=== PATIENT | male | born 1995 | race Caucasian/White ===

== ENCOUNTER 2019-06-08 12:25 | Emergency (ER) | payer OTHER ==
[2019-06-08 12:31] VITALS: TEMP 97.9
[2019-06-08] MEDS ORDERED: SODIUM CHLORIDE 0.9% 1,000 ML IV ONE (12:54)
[2019-06-08] MEDS ORDERED: SODIUM CHLORIDE 0.9% 500 ML 500 ML IV ONE (12:54)
[2019-06-08] MEDS ORDERED: MORPHINE SULFATE 4 MG/ML SYRINGE IVP STA (12:54)
[2019-06-08] MEDS ORDERED: PANTOPRAZOLE 40 MG/10 ML VIAL IVP STA (12:55)
[2019-06-08] MEDS ORDERED: ONDANSETRON 4 MG/2 ML VIAL IVP STA (12:55)
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
[2019-06-08] MEDS ORDERED: SODIUM CHLORIDE 0.9% 1,000 ML IV SCH (13:00)
[2019-06-08 13:06] LABS: Basophils # (A) 0.1 k/uL (0-0.2); Basophils % (A) 1 %; Eosinophils # (A) 0.6 k/uL (0-0.7); Eosinophils % (A) 6 %; HCT 54.6 % (39.0-53.0); Lymphocytes # (A) 1.6 k/uL (1.0-4.8); Lymphocytes % (A) 18 %; MCHC 34.7 g/dL (31.0-37.0); MCV 92.2 fL (80.0-100.0); Mean Platelet Volume 7.8; Monocytes # (A) 0.4 k/uL (0-1.0); Monocytes % (A) 5 %; Neutrophils # (A) 6.1 k/uL (1.3-7.7); Neutrophils % (A) 69 %; Platelet Count 327 k/uL (150-450); RBC 5.93 m/uL (4.30-5.90); RDW 12.7 % (11.5-15.5); WBC 8.9 k/uL (3.8-10.6)
[2019-06-08 13:30] LABS: ALT 216 U/L (4-49); African American GFR (CKD) >90 (>60 ml/min/1.73 sqM); Albumin 4.8 g/dL (3.5-5.0); Amylase 51 U/L (30-110); Anion Gap 11 mmol/L; Blood Urea Nitrogen 9 mg/dL (9-20); Calcium 9.6 mg/dL (8.4-10.2); Carbon Dioxide 29 mmol/L (22-30); Chloride 93 mmol/L (98-107); Glucose 121 mg/dL (74-99); Non-African American GFR(CKD) >90 (>60 ml/min/1.73 sqM); Sodium 133 mmol/L (137-145); Total Bilirubin 1.5 mg/dL (0.2-1.3); Total Protein 8.4 g/dL (6.3-8.2)
[2019-06-08 13:37] LABS: AST 102 U/L (17-59); Alkaline Phosphatase 75 U/L (38-126)
[2019-06-08 13:47] LABS: Appearance,Urine Clear (Clear); Bacteria,Urine Rare /hpf; Bilirubin,Urine Negative (Negative); Blood,Urine Negative (Negative); Color,Urine Yellow; Glucose,Urine (UA) Negative (Negative); Ketones,Urine Negative (Negative); Leukocyte Esterase,Urine Trace (Negative); Mucus,Urine Occasional /hpf; Nitrite,Urine Negative (Negative); PH, Urine 6.5 (5.0-8.0); Protein,Urine Trace (Negative); RBC,Urine 1 /hpf (0-5); Specific Gravity,Urine 1.018 (1.001-1.035); Squamous Epithelial Cell,Urine <1 /hpf (0-4); Urobilinogen,Urine <2.0 mg/dL (<2.0); WBC,Urine 6 /hpf (0-5)
--- NOTE | 2019-06-08 14:41 | CT ---
EXAMINATION TYPE: CT abdomen pelvis w con DATE OF EXAM: 06/08/2019 COMPARISON: None INDICATION: epigastric pain DLP: 1815.9 mGycm, Automated exposure control for dose reduction was used. CONTRAST: 100 mL of Isovue 300. Study performed without Oral Contrast TECHNIQUE: Axial images were obtained from above the diaphragm to the pubic rami in the axial plane a t 5 mm thick sections. Reconstructed images are reviewed on the computer in the coronal plane. FINDINGS: Limited CT sections are obtained the lung bases. The lung bases are clear. CT ABDOMEN: Liver: There is moderate fatty infiltration throughout the liver. Spleen: Normal Pancreas: Normal Adrenal glands: The adrenal glands are normal. Gallbladder: Normal Kidneys: No masses are evident. No hydronephrosis is present. No cysts are present. Delayed images were obtained through the kidneys, which remain unremarkable. Aorta: Normal Inferior vena cava: Normal. CT PELVIS: Scattered diverticuli are within the sigmoid colon and descending colon. No suspicious acute divertic ulitis is evident. The studies performed without oral contrast limiting bowel evaluation. Proximal small bowel loops are fluid-filled and somewhat prominent in the left upper quadrant of the abdomen. More distal small bowel loops have normal caliber but may have some subtle wall thickening. Correlate for focal ileus and ileitis. Appendix: Normal as visualized. Urinary bladder: Decompressed and cannot be well evaluated. Genitourinary structures: Prostate is unremarkable. Osseous structures: No suspicious lytic or sclerotic lesions. IMPRESSIONS: 1. Mild fluid-filled prominence of these proximal jejunum. Correlate for mild ileus. 2. Some mild wall thickening of the distal ileum may be present. Correlate for ileitis. 3. Mild diverticulosis without acute diverticulitis. 4. Moderate fatty infiltration liver
[2019-06-08 15:22] VITALS: BP 156/101; PULSE 68; RESP 18
== END 2019-06-08 15:49 | disposition home or self-care (01) ==
LOC: EC 12:25
DX: K56.7 Ileus, unspecified (principal); R74.8 Abnormal levels of other serum enzymes
CPT/HCPCS: 36415; 80053; 82150; 83690; 85025; 81001; 74177; 99284; 96374; 96375 ×2; 96361; J2270; J2405; C9113; Q9967

== ENCOUNTER 2020-01-14 23:10 | Emergency (ER) | payer OTHER ==
[2020-01-14 23:19] VITALS: RESP 18
[2020-01-14] MEDS ORDERED: SODIUM CHLORIDE 0.9% 1,000 ML IV ONE (23:42)
[2020-01-14] MEDS ORDERED: SODIUM CHLORIDE 0.9% 1,000 ML with MVI, ADULT NO.4 WITH VIT K 10 ML, THIAMINE 100 MG, F... IV ONE ×4 (23:42)
[2020-01-15 00:24] LABS: Basophils % (A) 0 %; Eosinophils # (A) 0.2 k/uL (0-0.7); Eosinophils % (A) 2 %; HCT 47.5 % (39.0-53.0); HGB 16.1 gm/dL (13.0-17.5); Lymphocytes % (A) 20 %; MCH 30.9 pg (25.0-35.0); MCHC 33.8 g/dL (31.0-37.0); MCV 91.6 fL (80.0-100.0); Mean Platelet Volume 7.4; Monocytes # (A) 0.4 k/uL (0-1.0); Monocytes % (A) 4 %; Neutrophils # (A) 7.5 k/uL (1.3-7.7); Neutrophils % (A) 74 %; Platelet Count 236 k/uL (150-450); RBC 5.19 m/uL (4.30-5.90); WBC 10.2 k/uL (3.8-10.6)
[2020-01-15 00:31] LABS: African American GFR (CKD) >90 (>60 ml/min/1.73 sqM); Anion Gap 10 mmol/L; Blood Urea Nitrogen 5 mg/dL (9-20); Calcium 9.5 mg/dL (8.4-10.2); Carbon Dioxide 27 mmol/L (22-30); Chloride 107 mmol/L (98-107); Glucose 108 mg/dL (74-99); Magnesium 2.2 mg/dL (1.6-2.3); Non-African American GFR(CKD) >90 (>60 ml/min/1.73 sqM); Potassium 3.4 mmol/L (3.5-5.1); Sodium 144 mmol/L (137-145)
--- NOTE | 2020-01-15 00:32 | ED ---
Psych HPI - General Chief Complaint: Psychiatric Symptoms Stated Complaint: ETOH Time Seen by Provider: 01/14/20 23:28 Source: patient, RN notes reviewed, old records reviewed Mode of arrival: wheelchair - History of Present Illness Initial Comments: 24 year old male presents emergency department today with his girlfriend with complaints of alcohol intoxication and suicidal ideation. Patient is a history of multidrug abuse. Patient reportedly took fentanyl and Xanax as well as drink this evening. He was making suicidal statements to his girlfriend and they decided to bring him to the ER for evaluation. Patient reports that he would like to go to rehab. He took the fentanyl and Xanax right before leaving the house to come to the ER reportedly. - Related Data Previous Rx's Medication Instructions Recorded Omeprazole [PriLOSEC] 20 mg PO AC-BID 7 Days #14 cap 06/08/19 Ondansetron Odt [Zofran Odt] 4 mg PO Q8HR PRN 7 Days #21 tab 06/08/19 Allergies Allergy/AdvReac Type Severity Reaction Status Date / Time No Known Allergies Allergy Verified 01/14/20 23:20 Review of Systems ROS Statement: Those systems with pertinent positive or pertinent negative responses have been documented in the HPI. ROS Other: All systems not noted in ROS Statement are negative. Past Medical History Past Medical History: No Reported History History of Any Multi-Drug Resistant Organisms: None Reported Past Surgical History: No Surgical Hx Reported Past Psychological History: No Psychological Hx Reported Smoking Status: Current every day smoker Past Alcohol Use History: Daily Past Drug Use History: Marijuana, Opiates General Exam - General Exam Comments Initial Comments: 24 -year-old male. No distress. Patient is intoxicated. Limitations: no limitations General appearance: alert, in no apparent distress Head exam: Present: atraumatic, normocephalic, normal inspection Eye exam: Present: normal appearance, PERRL, EOMI. Absent: scleral icterus, conjunctival injection, periorbital swelling ENT exam: Present: normal exam, mucous membranes moist Neck exam: Present: normal inspection. Absent: tenderness, meningismus, lymphadenopathy Respiratory exam: Present: normal lung sounds bilaterally. Absent: respiratory distress, wheezes, rales, rhonchi, stridor Cardiovascular Exam: Present: regular rate, normal rhythm, normal heart sounds. Absent: systolic murmur, diastolic murmur, rubs, gallop, clicks GI/Abdominal exam: Present: soft, normal bowel sounds. Absent: distended, tenderness, guarding, rebound, rigid Extremities exam: Present: normal inspection, full ROM, normal capillary refill. Absent: tenderness, pedal edema, joint swelling, calf tenderness Back exam: Present: normal inspection Neurological exam: Present: alert, oriented X3, CN II-XII intact Psychiatric exam: Present: normal affect, normal mood Skin exam: Present: warm, dry, intact, normal color. Absent: rash Course Vital Signs 01/14/20 23:15 Temperature 98.0 F Pulse Rate 110 H Respiratory 18 Rate Blood Pressure 141/86 O2 Sat by Pulse 97 Oximetry - Reevaluation(s) Reevaluation #1: 01/15/20 02:37 Patient was reevaluated he is now alert and oriented does not appear intoxicated. Quite anxious. Patient states he is not having any active suicidal plan and states that it is now feeling somewhat sober and anxious to be discharged. He states that he plans to go to rehab this week. He states he has to take care of some things including dental pain in order to go to rehab this week. He has a dentist appointment on Friday. Medical Decision Making - Medical Decision Making 24-year-old male presents emergency department today for evaluation for intoxication. Reportedly took Xanax and fentanyl as well as drink liquor tonight. Patient is girlfriend brought him here for evaluation. She did mention that he had some passive suicidal statements. He states that he has no active suicidal plan denies any intent for self-harm when he is sober. Patient was counseled on going to rehab and plans to this week. He states that he has to go to the dentist and has plans to do before he can go to rehab. Patient will be discharged at this time states he is ready to go home and will be getting a sober four horse hitch driver to take him home. - Lab Data Result diagrams: 01/14/20 23:57 01/14/20 23:57 Lab Results 01/14/20 01/14/20 01/14/20 Range/Units 23:57 23:57 23:57 WBC 10.2 (3.8-10.6) k/uL RBC 5.19 (4.30-5.90) m/uL Hgb 16.1 (13.0-17.5) gm/dL Hct 47.5 (39.0-53.0) % MCV 91.6 (80.0-100.0) fL MCH 30.9 (25.0-35.0) pg MCHC 33.8 (31.0-37.0) g/dL RDW 14.0 (11.5-15.5) % Plt Count 236 (150-450) k/uL MPV 7.4 Neutrophils % 74 % Lymphocytes % 20 % Monocytes % 4 % Eosinophils % 2 % Basophils % 0 % Neutrophils # 7.5 (1.3-7.7) k/uL Lymphocytes # 2.0 (1.0-4.8) k/uL Monocytes # 0.4 (0-1.0) k/uL Eosinophils # 0.2 (0-0.7) k/uL Basophils # 0.0 (0-0.2) k/uL Sodium 144 (137-145) mmol/L Potassium 3.4 L (3.5-5.1) mmol/L Chloride 107 (98-107) mmol/L Carbon Dioxide 27 (22-30) mmol/L Anion Gap 10 mmol/L BUN 5 L (9-20) mg/dL Creatinine 0.67 (0.66-1.25) mg/dL Est GFR (CKD-EPI)AfAm >90 (>60 ml/min/1.73 sqM) Est GFR (CKD-EPI)NonAf >90 (>60 ml/min/1.73 sqM) Glucose 108 H (74-99) mg/dL Calcium 9.5 (8.4-10.2) mg/dL Magnesium 2.2 (1.6-2.3) mg/dL Urine Opiates Screen Not Detected (NotDetected) Ur Oxycodone Screen Not Detected (NotDetected) Urine Methadone Screen Not Detected (NotDetected) Ur Propoxyphene Screen Not Detected (NotDetected) Ur Barbiturates Screen Not Detected (NotDetected) U Tricyclic Antidepress Not Detected (NotDetected) Ur Phencyclidine Scrn Not Detected (NotDetected) Ur Amphetamines Screen Not Detected (NotDetected) U Methamphetamines Scrn Not Detected (NotDetected) U Benzodiazepines Scrn Not Detected (NotDetected) Urine Cocaine Screen Not Detected (NotDetected) U Marijuana (THC) Screen Detected H (NotDetected) Serum Alcohol 205 H* mg/dL Disposition Clinical Impression: Drug abuse, ETOH abuse Disposition: HOME SELF-CARE Condition: Stable Instructions (If sedation given, give patient instructions): Abuse of Alcohol (ED), Suicide Prevention (ED) Additional Instructions: Patient advised follow-up with rehab resources this week. Patient should go to a dentist appointment on Friday. Return to the emergency department if any alarming signs or symptoms occur. Patient should stop drinking and stop drug abuse. Is patient prescribed a controlled substance at d/c from ED?: No Referrals: None,Stated [Primary Care Provider] - 1-2 days Time of Disposition: 02:38
[2020-01-15 00:39] LABS: Amphetamine Screen,Urine Not Detected (NotDetected); Barbiturate Screen,Urine Not Detected (NotDetected); Benzodiazepines Screen,Urine Not Detected (NotDetected); Cocaine Screen,Urine Not Detected (NotDetected); Methadone Screen, Urine Not Detected (NotDetected); Opiate Screen,Urine Not Detected (NotDetected); Oxycodone Screen, Urine Not Detected (NotDetected); Phencyclidine Screen,Urine Not Detected (NotDetected); Tricyclic Antidepressant,Urine Not Detected (NotDetected); Urn Cannabinoid Scrn Detected (NotDetected)
[2020-01-15 00:43] LABS: Alcohol 205 mg/dL
[2020-01-15] MEDS ORDERED: THIAMINE 100 MG/ML 2 ML VIAL IM STA (02:18)
[2020-01-15] MEDS ORDERED: LORazepam 2 MG/ML INJ IV PRN ×3 (02:18)
[2020-01-15] MEDS ORDERED: cloNIDine 0.2 MG/24HR PATCH TRANSDERM SCH (02:30)
[2020-01-15 03:18] VITALS: BP 136/84; PULSE 97; TEMP 98.1
[2020-01-15] MEDS ORDERED: THIAMINE 100 MG TAB PO SCH (17:30)
== END 2020-01-15 02:58 | disposition home or self-care (01) ==
LOC: EC 23:10
DX: F10.10 Alcohol abuse, uncomplicated (principal); F19.10 Other psychoactive substance abuse, uncomplicated; F17.200 Nicotine dependence, unspecified, uncomplicated
CPT/HCPCS: 36415; 80048; 80306; 80320; 82075; 83735; 85025; 96365; 96366; 99285

== ENCOUNTER 2021-07-08 23:16 | Emergency (ER) | payer OTHER ==
[2021-07-08 23:34] VITALS: BP 134/89; PULSE 76; RESP 18; TEMP 98.4
[2021-07-08] MEDS ORDERED: DIPH,PERTUS(ACELL)TETVAC-LF 0.5 ML VIAL IM ONE (23:48)
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
== END 2021-07-09 00:38 | disposition home or self-care (01) ==
LOC: EC 23:16
DX: S91.311A Laceration without foreign body, right foot, initial encounter (principal); F17.200 Nicotine dependence, unspecified, uncomplicated; Z23 Encounter for immunization; W50.1XXA Accidental kick by another person, initial encounter; Y93.01 Activity, walking, marching and hiking
CPT/HCPCS: 90715

== ENCOUNTER 2024-04-05 17:31 | Emergency (ER) | payer OTHER ==
[2024-04-05] MEDS: LORazepam 2 MG/ML INJ IV STA ×2 (19:53→21:31)
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
[2024-04-05 20:08] LABS: Appearance,Urine Cloudy (Clear); Bilirubin,Urine Negative (Negative); Blood,Urine Negative (Negative); Budding Yeast,Urine Rare /hpf; Color,Urine Colorless; Glucose,Urine (UA) Negative (Negative); Ketones,Urine Negative (Negative); Leukocyte Esterase,Urine Negative (Negative); Mucus,Urine Rare /hpf; Nitrite,Urine Negative (Negative); Protein,Urine Negative (Negative); RBC,Urine <1 /hpf (0-5); Specific Gravity,Urine 1.009 (1.001-1.035); Urobilinogen,Urine <2.0 mg/dL (<2.0); WBC,Urine <1 /hpf (0-5)
[2024-04-05 20:11] LABS: ALT 82 U/L (4-49); AST 56 U/L (17-59); African American GFR (CKD) >90 (>60 ml/min/1.73 sqM); Albumin 4.8 g/dL (3.5-5.0); Alkaline Phosphatase 86 U/L (38-126); Anion Gap 14 mmol/L; Blood Urea Nitrogen 7 mg/dL (9-20); Calcium 9.2 mg/dL (8.4-10.2); Carbon Dioxide 33 mmol/L (22-30); Chloride 99 mmol/L (98-107); Glucose 103 mg/dL (74-99); Non-African American GFR(CKD) >90 (>60 ml/min/1.73 sqM); Potassium 3.3 mmol/L (3.5-5.1); Sodium 146 mmol/L (137-145); Total Bilirubin 0.5 mg/dL (0.2-1.3); Total Protein 8.1 g/dL (6.3-8.2)
[2024-04-05 20:14] LABS: Amphetamine Screen,Urine Not Detected (NotDetected); Barbiturate Screen,Urine Not Detected (NotDetected); Benzodiazepines Screen,Urine Not Detected (NotDetected); Cocaine Screen,Urine Not Detected (NotDetected); Methadone Screen, Urine Not Detected (NotDetected); Opiate Screen,Urine Detected (NotDetected); Oxycodone Screen, Urine Not Detected (NotDetected); Phencyclidine Screen,Urine Not Detected (NotDetected); Tricyclic Antidepressant,Urine Not Detected (NotDetected); Urn Cannabinoid Scrn Not Detected (NotDetected)
[2024-04-05 20:27] LABS: Basophils # (A) 0.1 k/uL (0-0.2); Basophils % (A) 1 %; Eosinophils % (A) 0 %; HCT 45.9 % (39.0-53.0); HGB 15.2 gm/dL (13.0-17.5); Lymphocytes # (A) 3.2 k/uL (1.0-4.8); Lymphocytes % (A) 31 %; MCH 27.7 pg (25.0-35.0); MCHC 33.1 g/dL (31.0-37.0); MCV 83.9 fL (80.0-100.0); Mean Platelet Volume 7.3; Monocytes # (A) 0.3 k/uL (0-1.0); Monocytes % (A) 3 %; Neutrophils # (A) 6.5 k/uL (1.3-7.7); Neutrophils % (A) 64 %; Platelet Count 386 k/uL (150-450); RBC 5.47 m/uL (4.30-5.90); RDW 12.7 % (11.5-15.5); WBC 10.2 k/uL (3.8-10.6)
[2024-04-05] MEDS: POTASSIUM CHLORIDE ER 20 MEQ TAB.ER PO STA ×2 (21:27)
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
[2024-04-06 06:34] VITALS: BP 136/88; PULSE 78; RESP 18; TEMP 98
[2024-04-06 07:26] LABS: Influenza A Not Detected (Not Detectd); Influenza B Not Detected (Not Detectd); RSV Not Detected (Not Detectd)
== END 2024-04-06 07:00 | disposition home or self-care (01) ==
LOC: EC 17:31
DX: F39 Unspecified mood [affective] disorder (principal); F10.129 Alcohol abuse with intoxication, unspecified; F17.200 Nicotine dependence, unspecified, uncomplicated
CPT/HCPCS: 82075; 36415; 80053; 85025; 81001; 80306; 87636; 73130; 73090; 74018; 99285; 96374; 96376; 29125; J2060

== ENCOUNTER 2024-04-22 21:51 | Observation (INO) | payer OTHER ==
--- NOTE | 2024-04-22 22:47 | ED ---
General Adult HPI - General Chief complaint: Psychiatric Symptoms Stated complaint: Mental health Time Seen by Provider: 04/22/24 22:25 Source: patient, family Mode of arrival: ambulatory Limitations: no limitations - History of Present Illness Initial comments: Patient is a 28-year-old male with a past medical history of alcoholism presenting today for self-harming/destructive behaviors, not caring for himself and recovery from alcoholism. Patient presents in the company of his aunt who brought him in today because she is concerned that he has been displaying self harming behaviors. He he has been found "trashing his house and his car" earlier this week he reportedly punched a wall in his home sustaining multiple bruises to his right upper extremity. He has been drinking daily for the last 3 years. States he has been drinking more heavily over the last few months due to a recent break-up with his girlfriend. States he drinks what ever kind of alcohol and get his hands on until he cannot drink anymore. Last drink was just prior to arrival. The patient himself denies suicidal ideation or homicidal ideation. Denies auditory visual hallucinations. States that he continues to drink to prevent alcohol withdrawal because when he stops drinking he gets shaky. Also endorses illicit drug use, most recent of which was cocaine earlier today. Does not take any psychiatric medications. Patient's aunt states the patient does have access to weapons at home and has guns at home. Patient has never tried to harm himself in the past. - Related Data Home Medications Medication Instructions Recorded Confirmed No Known Home Medications 04/23/24 04/23/24 Allergies Allergy/AdvReac Type Severity Reaction Status Date / Time No Known Allergies Allergy Verified 04/23/24 07:56 Review of Systems ROS Statement: Those systems with pertinent positive or pertinent negative responses have been documented in the HPI. ROS Other: All systems not noted in ROS Statement are negative. Past Medical History Past Medical History: No Reported History History of Any Multi-Drug Resistant Organisms: None Reported Past Surgical History: No Surgical Hx Reported Past Psychological History: Anxiety, Depression Smoking Status: Current every day smoker Past Alcohol Use History: Daily Past Drug Use History: Marijuana, Opiates - Past Family History Father Additional Family Medical History / Comment(s): does drugs and drinks alcohol with patient per patient. Mother Additional Family Medical History / Comment(s): drug use and alcohol use per patient. General Exam - General Exam Comments Initial Comments: PE: CONSTITUTIONAL: No apparent distress, disheveled, not ill appearing or toxic appearing, no diaphoresis SKIN: [warm, dry, no jaundice, various superficial linear abrasions to the right upper extremity, various yellow-brown bruises to the RUE EYES: Pupils are equally round, extraocular movements intact without nystagmus, clear conjunctiva, non-icteric sclera HENT: Normocephalic, atraumatic, moist mucus membranes, oropharynx clear without exudates, no tongue fasciculations NECK: , Full range of motion, normal appearance PULMONARY: Clear to auscultation without wheezes, rhonchi, or rales, normal excursion, no accessory muscle use and no stridor CARDIOVASCULAR: Regular rate, rhythm, normal S1 and S2. No appreciated murmurs, rubs or gallops. Strong radial pulses with intact distal perfusion. No lower extremity edema GASTROINTESTINAL: Soft, active bowel sounds throughout, non-tender, non- distended, no palpable masses, no rebound or guarding. No hepatosplenomegaly MUSCULOSKELETAL: Extremities have no gross deformity, no edema, redness, or swelling. No calf swelling NEUROLOGIC:_a/o x 3, GCS 15, normal mentation and particularly loquacious speech. Moves all extremities x 4 without motor or sensory deficit, no tremor with outstretched hands PSYCHIATRIC: Labile mood and affect, laughing about being persistently intoxicated and about his illicit substance use though states he is ready to get sober, denies SI/HI, does not appear to be responding to internal stimuli, calm and cooperative Limitations: no limitations Course Vital Signs 04/22/24 04/23/24 04/23/24 22:00 00:10 01:00 Temperature 98.8 F 98.3 F Pulse Rate 111 H 87 82 Respiratory 18 19 Rate Blood Pressure 147/83 128/75 O2 Sat by Pulse 96 97 Oximetry 04/23/24 04/23/24 04/23/24 05:49 07:32 09:14 Temperature 98.6 F Pulse Rate 77 84 93 Respiratory 18 Rate Blood Pressure 139/87 137/76 O2 Sat by Pulse 97 99 Oximetry 04/23/24 04/23/24 04/23/24 11:27 13:57 16:56 Temperature 98.4 F 97.8 F Pulse Rate 85 102 H 81 Respiratory 18 18 18 Rate Blood Pressure 119/80 159/102 147/93 O2 Sat by Pulse 98 99 99 Oximetry EKG Findings - EKG Comments: EKG Findings:: Sinus rhythm rate 83 beats minute AL interval 151 ms QT/QTc 362/402 ms, normal axis, prominent T wave V2, no peaked T waves, no ST elevations or depressions, no arrhythmia, no delta waves or Brugada pattern Medical Decision Making - Medical Decision Making Was pt. sent in by a medical professional or institution (GILLIAN Zavala, REDUCING SALON ATTENDANT, urgent care, hospital, or intermediate...) When possible be specific @ -No Did you speak to anyone other than the patient for history (EMS, parent, family, police, friend...)? What history was obtained from this source Patient's Aunt arrives w/pt, states concern for patient's lack of self care, "trashing his house and his car", is going to file petition for psychiatric evaluation stating that patient has made suicidal statements the patient denies this Did you review nursing and triage notes (agree or disagree)? Why? @ -I reviewed nursing and triage notes Were old charts reviewed (outside hosp., previous admission, EMS record, old EKG, old radiological studies, urgent care reports/EKG's, intermediate records)? Report findings @ -Medical records reviewed Differential Diagnosis (chest pain, altered mental status, abdominal pain women, abdominal pain men, vaginal bleeding, weakness, fever, dyspnea, syncope, heada carloz, dizziness, GI bleed, back pain, seizure, CVA, palpatations, mental health, musculoskeletal)? Differential Mental Health Depression, anxiety, bipolar, psychosis, schizophrenia, borderline personality, situational depression, adjustment disorder, behavioral disorder, malingering, substance abuse, encephalopathy, medication reaction, dementia, hypothyroidism, degenerative neurologic disorder, lupus.... This is not meant to be all- inclusive list What testing was considered but not performed or refused? (CT, X-rays, U/S, labs)? Why? @ -None What meds were considered but not given or refused? Why? @ -None Did you discuss the management of the patient with other professionals (professionals i.e. GILLIAN Zavala, REDUCING SALON ATTENDANT, lab, RT, psych nurse, social work assistant, probate lawyer, teacher, cash management officer, block and case maker)? Give summary @ -No Was smoking cessation discussed for >3mins.? @ -No Was critical care preformed (if so, how long)? @ -No Were there social determinants of health that impacted care today? How? (H omelessness, low income, unemployed, alcoholism, drug addiction, transportation, low edu. Level, literacy, decrease access to med. care, custodial, rehab)? @ -No Was there de-escalation of care discussed even if they declined (Discuss DNR or withdrawal of care, Hospice)? @ -No What co-morbidities impacted this encounter? (DM, HTN, Smoking, COPD, CAD, Cancer, CVA, ARF, Chemo, Hep., AIDS, mental health diagnosis, sleep apnea, morbid obesity)? @Alcoholism, drug abuse Was patient admitted / discharged? Hospital course, mention meds given and route, prescriptions, significant lab abnormalities, going to OR and other pertinent info. Admission- this is a 28-year-old male past medical history alcoholism presenting today for self destructive behavior and not caring for himself, presents in the company of his aunt. He appears grossly intoxicated. No signs of alcohol withdrawal at this time. Plan for basic labs, blood alcohol, if blood alcohol above 250 will plan for admission for alcohol intoxication, observation for signs alcohol with drawl and psychiatry evaluation. Discussed with patient plan of care, he and his aunt are agreeable w/ plan. Blood alcohol 258, will admit for alcohol intoxication, CIWA protocol orders were placed, psychiatry consult placed. A clinical certification was not filed this patient remains clinically intoxicated. Case discussed with Dr. Woodall, [facility], kindly accepts patient for admission. Undiagnosed new problem with uncertain prognosis? @ -No Drug Therapy requiring intensive monitoring for toxicity (Heparin, Nitro, Insulin, Cardizem)? @ -No Were any procedures done? @ -No Diagnosis/symptom? @Alcohol intoxication, self-destructive behaviors Acute, or Chronic, or Acute on Chronic? acute Uncomplicated (without systemic symptoms) or Complicated (systemic symptoms)? @Complicated Side effects of treatment? @ -No Exacerbation, Progression, or Severe Exacerbation? @ -No Poses a threat to life or bodily function? How? (Chest pain, USA, NH, pneumonia, PE, COPD, DKA, ARF, appy, cholecystitis, CVA, Diverticulitis, Homicidal, Suicidal, threat to staff... and all critical care pts) @Potentially, patient denies suicidal ideation or homicidal ideation to myself, auditory or visual hallucinations however patient's aunt endorsed concern for patient's lack of care for self - Lab Data Result diagrams: 04/25/24 03:46 04/25/24 03:46 Lab Results 04/22/24 04/22/24 04/22/24 Range/Units 23:08 23:08 23:08 WBC 13.1 H (3.8-10.6) k/uL RBC 5.37 (4.30-5.90) m/uL Hgb 15.0 (13.0-17.5) gm/dL Hct 46.8 (39.0-53.0) % MCV 87.2 (80.0-100.0) fL MCH 28.0 (25.0-35.0) pg MCHC 32.2 (31.0-37.0) g/dL RDW 13.1 (11.5-15.5) % Plt Count 634 H (150-450) k/uL MPV 6.8 Neutrophils % 67 % Lymphocytes % 24 % Monocytes % 6 % Eosinophils % 1 % Basophils % 1 % Neutrophils # 8.8 H (1.3-7.7) k/uL Lymphocytes # 3.1 (1.0-4.8) k/uL Monocytes # 0.7 (0-1.0) k/uL Eosinophils # 0.1 (0-0.7) k/uL Basophils # 0.1 (0-0.2) k/uL PT 10.6 (10.0-12.5) sec INR 0.9 (<1.2) APTT 23.4 (22.0-30.0) sec Sodium 138 (137-145) mmol/L Potassium 3.4 L (3.5-5.1) mmol/L Chloride 94 L (98-107) mmol/L Carbon Dioxide 31 H (22-30) mmol/L Anion Gap 13 mmol/L BUN 13 (9-20) mg/dL Creatinine 0.73 (0.66-1.25) mg/dL Est GFR (CKD-EPI)AfAm >90 (>60 ml/min/1.73 sqM) Est GFR (CKD-EPI)NonAf >90 (>60 ml/min/1.73 sqM) Glucose 129 H (74-99) mg/dL POC Glucose (mg/dL) (70-110) mg/dL POC Glu Store Lead ID Calcium 8.8 (8.4-10.2) mg/dL Phosphorus 3.4 (2.5-4.5) mg/dL Magnesium 2.2 (1.6-2.3) mg/dL Total Bilirubin 0.5 (0.2-1.3) mg/dL AST 57 (17-59) U/L ALT 65 H (4-49) U/L Alkaline Phosphatase 73 (38-126) U/L Total Protein 7.9 (6.3-8.2) g/dL Albumin 4.6 (3.5-5.0) g/dL Lipase 134 (23-300) U/L Urine Opiates Screen (NotDetected) Ur Oxycodone Screen (NotDetected) Urine Methadone Screen (NotDetected) Ur Barbiturates Screen (NotDetected) U Tricyclic Antidepress (NotDetected) Ur Phencyclidine Scrn (NotDetected) Ur Amphetamines Screen (NotDetected) U Methamphetamines Scrn (NotDetected) U Benzodiazepines Scrn (NotDetected) Urine Cocaine Screen (NotDetected) U Marijuana (THC) Screen (NotDetected) Serum Alcohol 258 H* mg/dL 04/22/24 04/23/24 Range/Units 23:10 01:06 WBC (3.8-10.6) k/uL RBC (4.30-5.90) m/uL Hgb (13.0-17.5) gm/dL Hct (39.0-53.0) % MCV (80.0-100.0) fL MCH (25.0-35.0) pg MCHC (31.0-37.0) g/dL RDW (11.5-15.5) % Plt Count (150-450) k/uL MPV Neutrophils % % Lymphocytes % % Monocytes % % Eosinophils % % Basophils % % Neutrophils # (1.3-7.7) k/uL Lymphocytes # (1.0-4.8) k/uL Monocytes # (0-1.0) k/uL Eosinophils # (0-0.7) k/uL Basophils # (0-0.2) k/uL PT (10.0-12.5) sec INR (<1.2) APTT (22.0-30.0) sec Sodium (137-145) mmol/L Potassium (3.5-5.1) mmol/L Chloride (98-107) mmol/L Carbon Dioxide (22-30) mmol/L Anion Gap mmol/L BUN (9-20) mg/dL Creatinine (0.66-1.25) mg/dL Est GFR (CKD-EPI)AfAm (>60 ml/min/1.73 sqM) Est GFR (CKD-EPI)NonAf (>60 ml/min/1.73 sqM) Glucose (74-99) mg/dL POC Glucose (mg/dL) 124 H (70-110) mg/dL POC Glu Store Lead ID Frankie Hutchison Calcium (8.4-10.2) mg/dL Phosphorus (2.5-4.5) mg/dL Magnesium (1.6-2.3) mg/dL Total Bilirubin (0.2-1.3) mg/dL AST (17-59) U/L ALT (4-49) U/L Alkaline Phosphatase (38-126) U/L Total Protein (6.3-8.2) g/dL Albumin (3.5-5.0) g/dL Lipase (23-300) U/L Urine Opiates Screen Not Detected (NotDetected) Ur Oxycodone Screen Not Detected (NotDetected) Urine Methadone Screen Not Detected (NotDetected) Ur Barbiturates Screen Detected H (NotDetected) U Tricyclic Antidepress Not Detected (NotDetected) Ur Phencyclidine Scrn Not Detected (NotDetected) Ur Amphetamines Screen Not Detected (NotDetected) U Methamphetamines Scrn Not Detected (NotDetected) U Benzodiazepines Scrn Not Detected (NotDetected) Urine Cocaine Screen Detected H (NotDetected) U Marijuana (THC) Screen Not Detected (NotDetected) Serum Alcohol mg/dL Disposition Clinical Impression: Alcohol intoxication, Self-destructive behavior Disposition: ADMITTED IP TO THIS HOSP Condition: Stable
[2024-04-22 23:12] LABS: Glucose,Whole Blood 124 mg/dL (70-110)
[2024-04-22 23:27] LABS: Basophils # (A) 0.1 k/uL (0-0.2); Basophils % (A) 1 %; Eosinophils # (A) 0.1 k/uL (0-0.7); Eosinophils % (A) 1 %; HCT 46.8 % (39.0-53.0); Lymphocytes # (A) 3.1 k/uL (1.0-4.8); Lymphocytes % (A) 24 %; MCHC 32.2 g/dL (31.0-37.0); MCV 87.2 fL (80.0-100.0); Mean Platelet Volume 6.8; Monocytes # (A) 0.7 k/uL (0-1.0); Monocytes % (A) 6 %; Neutrophils # (A) 8.8 k/uL (1.3-7.7); Neutrophils % (A) 67 %; Platelet Count 634 k/uL (150-450); RBC 5.37 m/uL (4.30-5.90); RDW 13.1 % (11.5-15.5); WBC 13.1 k/uL (3.8-10.6)
[2024-04-22] MEDS: SODIUM CHLORIDE 0.9% 1,000 ML IV STA (23:28)
[2024-04-22] MEDS: MULTIVITAMINS, THERA 1 EACH TAB PO STA (23:31)
[2024-04-22] MEDS: THIAMINE 100 MG/ML 2 ML VIAL IM STA (23:32)
[2024-04-22 23:41] LABS: ALT 65 U/L (4-49); AST 57 U/L (17-59); African American GFR (CKD) >90 (>60 ml/min/1.73 sqM); Albumin 4.6 g/dL (3.5-5.0); Alkaline Phosphatase 73 U/L (38-126); Anion Gap 13 mmol/L; Blood Urea Nitrogen 13 mg/dL (9-20); Calcium 8.8 mg/dL (8.4-10.2); Carbon Dioxide 31 mmol/L (22-30); Chloride 94 mmol/L (98-107); Glucose 129 mg/dL (74-99); Lipase 134 U/L (23-300); Magnesium 2.2 mg/dL (1.6-2.3); Non-African American GFR(CKD) >90 (>60 ml/min/1.73 sqM); Phosphorus 3.4 mg/dL (2.5-4.5); Potassium 3.4 mmol/L (3.5-5.1); Sodium 138 mmol/L (137-145); Total Bilirubin 0.5 mg/dL (0.2-1.3); Total Protein 7.9 g/dL (6.3-8.2)
[2024-04-22 23:49] LABS: Alcohol 258 mg/dL
[2024-04-22] MEDS: ONDANSETRON 4 MG/2 ML VIAL IVP STA (23:51)
[2024-04-22] MEDS: FOLIC ACID 1 MG TAB PO STA (23:52)
[2024-04-22] MEDS ORDERED: LORazepam 1 MG TAB PO PRN ×2 (23:56)
[2024-04-22] MEDS ORDERED: LORazepam 2 MG/ML INJ IV PRN (23:56)
[2024-04-23 00:09] LABS: INR 0.9 (<1.2); Partial Thromboplastin Time 23.4 sec (22.0-30.0); Prothrombin Time 10.6 sec (10.0-12.5)
[2024-04-23] MEDS: DEXTROSE 5%-0.45% NACL 1,000 ML IV SCH (01:00)
[2024-04-23] MEDS ORDERED: IBUPROFEN 400 MG TAB PO PRN (01:09)
[2024-04-23] MEDS ORDERED: ONDANSETRON 4 MG/2 ML VIAL IVP PRN (01:09)
[2024-04-23] MEDS ORDERED: NALOXONE 0.4 MG/ML 1 ML VIAL IV PRN (01:09)
[2024-04-23] MEDS ORDERED: ALPRAZolam 0.25 MG TAB PO PRN (01:09)
[2024-04-23 02:01] LABS: Amphetamine Screen,Urine Not Detected (NotDetected); Barbiturate Screen,Urine Detected (NotDetected); Benzodiazepines Screen,Urine Not Detected (NotDetected); Cocaine Screen,Urine Detected (NotDetected); Methadone Screen, Urine Not Detected (NotDetected); Opiate Screen,Urine Not Detected (NotDetected); Oxycodone Screen, Urine Not Detected (NotDetected); Phencyclidine Screen,Urine Not Detected (NotDetected); Tricyclic Antidepressant,Urine Not Detected (NotDetected); Urn Cannabinoid Scrn Not Detected (NotDetected)
[2024-04-23] MEDS: LORazepam 0.5 MG TAB PO PRN (02:06)
[2024-04-23] MEDS: POTASSIUM CHLORIDE ER 10 MEQ TAB.ER.PRT PO STA (02:06)
[2024-04-23] MEDS: THIAMINE 100 MG TAB PO SCH (09:20)
[2024-04-23] MEDS: FAMOTIDINE 20 MG TAB PO SCH (09:20)
--- NOTE | 2024-04-23 13:38 | P.CN ---
Psychiatric Consult - . Consult date: 04/23/24 Consult:: 04/23/24 12:37 IDENTIFYING DATA: This patient is a 28-year-old male, currently single has no kids, lives alone in a house, is working doing tooling and machine pipefitting REASON FOR REFERRAL: Psychiatry was consulted for suicidal ideations self-harm HISTORY OF PRESENT ILLNESS: The patient presented to the hospital on 04/22 for alcohol abuse and intoxication, apparently endorsing suicidal ideations and not taking care of self. Patient's urine drug screen is positive for barbiturates and cocaine, patient's blood alcohol level was 258 on admission. Patient was admitted medically, investment underwriter saw patient at the bedside today. He claims that he had a bad break-up with his ex-girlfriend about 3 weeks ago. States that he feels that since then he has been feeling more depressed, feeling like he has "unstable" mood. Describes some mood swings, also has been increasing his alcohol use drinking about a half a gallon of liquor a day. Also claims that he has been abusing several different drugs including cocaine opiates Xanax and marijuana. States that he was having thoughts of hurting himself that were on and off, not currently endorsing these. Claims that his grandfather about a year ago which is affecting him, denies any history of delirium tremens or withdrawal seizures however is stating that he feels a bit restless and anxious due to the alcohol withdrawal. Claims that his sleep has been poor appetite has been fair.. At this time patient denies any suicidal or homical ideations, intent or plan. Patient denies any auditory, visual hallucinations and denies any paranoia or delusions. Patients admits to using alcohol as noted above, claims that he has been using cocaine occasionally, opiate pills, Xanax at times when he cannot obtain it, and marijuana occasionally, states that he also smokes cigarettes. Claims that he has been to rehab [facility] in 2019 PAST PSYCHIATRIC HISTORY: Patient has a a history of mood disorder and polysubstance abuse. Patient denies being on any psychiatric medications. Patient denies any previous psychiatric hospitalizations. Patient denies any psychiatric outpatient follow-up. Patient denies any history of suicide attempts in the past. He denies any access to guns or weapons at home. Past Medical History: No Reported History History of Any Multi-Drug Resistant Organisms: None Reported Past Surgical History: No Surgical Hx Reported Past Psychological History: Anxiety, Depression Smoking Status: Current every day smoker Past Alcohol Use History: Daily Past Drug Use History: Marijuana, Opiates ALLERGIES: as per EMR. CHEMICAL DEPENDENCY HISTORY: as per HPI. 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 Claims that he did go to residential in the past however was just overnight. He is single he has no kids he lives alone in a house. MENTAL STATUS EXAM: General Appearance: Patient appears to be have several tattoos, disheveled appearance, stated age is alert, attempts to be cooperative. Patient appears to have poor hygiene and grooming wearing hospital gown with fair eye contact. Behavior: Patient is calmly lying in bed without any agitated behavior. Times to cooperate, a bit restless Speech: Patient's speech is fluent and nonpressured. Rambles at times Mood/Affect: Patient reports their mood is "depressed and a bit anxious", affect is congruent Suicidality/Homicidality: Patient denies having any suicidal or homicidal ideation intent or plan. Perceptions: Patient denies any visual hallucinations and denies any auditory hallucinations Though content/process: There is no evidence of any delusional thought content and thought process is linear and goal-directed. Memory and concentration: AOX3, grossly intact for the purposes of this session. Can spell "WORLD" backwards Judgment and insight: Poor IMPRESSIONS: Depressive disorder unspecified, rule out major depressive disorder versus bipolar disorder with depressed mood versus substance-induced depressive disorder Alcohol use disorder severe dependence, currently in withdrawal Cocaine abuse Opiate abuse Benzodiazepine abuse Cannabis use disorder mild Nicotine dependence PLAN: -At this time patient DOES NOT meet criteria for inpatient psychiatric admission. -Would recommend the following medication changes/additions: Librium 20 mg 3 times daily for alcohol withdrawal, continue to taper over the next few days. Seroquel 50 mg nightly for mood stabilization/depression/sleep, Zoloft 50 mg daily for mood/anxiety. He is not interested in any anticraving medications at this time. -CIWA protocol with PRN Ativan for alcohol withdrawal. Continue to monitor vital signs. -sheet metal duct worker supervisor to provide patient with outpatient mental health/psychiatry resources for appropriate follow up upon discharge -Tractor Crane Operator spoke with patient about substance abuse and the harmful effects on medical and mental health, patient verbally understood and agreed. -sheet metal duct worker supervisor to provide patient substance use treatment resources including AA/NA meetings in the community. -sheet metal duct worker supervisor to provide patient with access line number to call for inpatient substance rehab -Communicated plan to patient's nurse -Psychiatry will sign off at this time -Please contact with any questions. 04/23/24 13:31
[2024-04-23] MEDS: SERTRALINE 50 MG TAB PO SCH (15:04)
[2024-04-23] MEDS: ACETAMINOPHEN TAB 325 MG TAB PO PRN (20:50)
[2024-04-23] MEDS: QUEtiapine 50 MG TAB PO SCH (20:50)
[2024-04-24] MEDS ORDERED: LORazepam 1 MG/0.5 ML VIAL IV PRN (08:19)
[2024-04-24] MEDS: LORazepam 1 MG TAB PO PRN (08:59)
[2024-04-24 12:01] LABS: Basophils # (A) 0.1 k/uL (0-0.2); Basophils % (A) 1 %; Eosinophils # (A) 0.1 k/uL (0-0.7); Eosinophils % (A) 1 %; HCT 41.9 % (39.0-53.0); HGB 13.9 gm/dL (13.0-17.5); Lymphocytes # (A) 1.8 k/uL (1.0-4.8); Lymphocytes % (A) 26 %; MCH 28.9 pg (25.0-35.0); MCHC 33.1 g/dL (31.0-37.0); MCV 87.1 fL (80.0-100.0); Mean Platelet Volume 7.5; Monocytes # (A) 0.3 k/uL (0-1.0); Monocytes % (A) 4 %; Neutrophils # (A) 4.7 k/uL (1.3-7.7); Neutrophils % (A) 67 %; Platelet Count 348 k/uL (150-450); RDW 13.4 % (11.5-15.5)
[2024-04-24 12:09] LABS: African American GFR (CKD) >90 (>60 ml/min/1.73 sqM); Anion Gap 5 mmol/L; Blood Urea Nitrogen 3 mg/dL (9-20); Calcium 8.9 mg/dL (8.4-10.2); Carbon Dioxide 33 mmol/L (22-30); Chloride 99 mmol/L (98-107); Glucose 133 mg/dL (74-99); Magnesium 1.8 mg/dL (1.6-2.3); Non-African American GFR(CKD) >90 (>60 ml/min/1.73 sqM); Potassium 3.5 mmol/L (3.5-5.1); Sodium 137 mmol/L (137-145)
[2024-04-25] MEDS: LORazepam 1 MG TAB PO PRN (09:02)
[2024-04-25 09:17] LABS: Basophils # (A) 0.09 X 10*3/uL (0.00-0.10); Basophils % (A) 0.9 %; Eosinophils # (A) 0.14 X 10*3/uL (0.04-0.35); Eosinophils % (A) 1.4 %; HCT 40.7 % (39.6-50.0); HGB 13.8 g/dL (13.0-17.0); Lymphocytes # (A) 2.85 X 10*3/uL (0.90-5.00); Lymphocytes % (A) 28.5 %; MCH 29.1 pg (27.0-32.0); MCHC 33.9 g/dL (32.0-37.0); MCV 85.9 FL (80.0-97.0); Mean Platelet Volume 10.2 FL (9.5-12.2); Monocytes # (A) 0.63 X 10*3/uL (0.20-1.00); Monocytes % (A) 6.3 %; NRBC Per 100 WBC 0 X 10*3/uL (0.00-0.01); Neutrophils # (A) 6.25 X 10*3/uL (1.80-7.70); Neutrophils % (A) 62.5 %; Platelet Count 368 X 10*3/uL (140-440); RBC 4.74 X 10*6/uL (4.40-5.60); RDW 13.1 % (11.5-14.5)
[2024-04-25 09:21] LABS: BUN/Creat Ratio <5.83 Ratio (12.00-20.00); Blood Urea Nitrogen <3.5 mg/dL (9.0-27.0); Calcium 8.7 mg/dL (8.7-10.3); Carbon Dioxide 27.3 mmol/L (21.6-31.8); Chloride 104 mmol/L (96-109); Glucose 98 mg/dL (70-110); Potassium 3.1 mmol/L (3.5-5.5); Sodium 142 mmol/L (135-145)
[2024-04-25] MEDS: MAGNESIUM SULFATE-D5W PMX 1 GM in DEXTROSE/WATER 1 100ML.BAG IVPB ONE (12:16)
[2024-04-25] MEDS: POTASSIUM CHLORIDE ER 10 MEQ TAB.ER.PRT PO STA (12:16)
--- NOTE | 2024-04-25 16:19 | P.HPIM ---
History of Present Illness H&P Date: 04/23/24 Chief Complaint: alcoholism/self-harming behavior 28-year-old male with a past medical history of alcoholism presenting today for self-harming behaviors, not caring for himself and recovery from alcoholism. Patient presents in the company of his aunt who brought him in today because she is concerned that he has been displaying self destructive behaviors. He he has been found "trashing his house and his car" earlier this week he reportedly punched a wall in his home sustaining multiple bruises to his right upper extremity. He has been drinking daily for the last 3 years. States he has been drinking more heavily over the last few months due to a recent break-up with his girlfriend. States he drinks what ever kind of alcohol and get his hands on until he cannot drink anymore. Last drink was just prior to arrival. The patient himself denies suicidal ideation or homicidal ideation. Denies auditory visual hallucinations. States that he continues to drink to prevent alcohol withdrawal because when he stops drinking he gets shaky. Also endorses illicit drug use, most recent of which was cocaine earlier today. Does not take any psychiatric medications. Patient's aunt states the patient does have access to weapons at home and has guns at home. Patient has never tried to harm himself in the past. Blood work completed in ED reveals a WBC of 13.1, hemoglobin of 15 and platelet count of 634, sodium 138, potassium 3.4, BUNs/creatinine of 13/0.73 and blood glucose of 129, AST is normal at 57, ALT is mildly elevated at 65, serum alcohol level of 258 Urine drug screen is positive for barbiturates and cocaine Review of Systems ROS unobtainable: due to mental status Past Medical History Past Medical History: No Reported History History of Any Multi-Drug Resistant Organisms: None Reported Past Surgical History: No Surgical Hx Reported Past Psychological History: Anxiety, Depression Smoking Status: Current every day smoker Past Alcohol Use History: Daily Past Drug Use History: Marijuana, Opiates - Past Family History Father Additional Family Medical History / Comment(s): does drugs and drinks alcohol with patient per patient. Mother Additional Family Medical History / Comment(s): drug use and alcohol use per patient. Medications and Allergies Home Medications Medication Instructions Recorded Confirmed Type No Known Home Medications 04/23/24 04/23/24 History Allergies Allergy/AdvReac Type Severity Reaction Status Date / Time No Known Allergies Allergy Verified 04/23/24 07:56 Physical Exam Vitals: Vital Signs Temp Pulse Resp BP Pulse Ox 04/23/24 11:27 98.4 F 85 18 119/80 98 04/23/24 09:14 93 137/76 99 04/23/24 07:32 84 18 04/23/24 05:49 98.6 F 77 139/87 97 04/23/24 01:00 82 04/23/24 00:10 98.3 F 87 19 128/75 97 04/22/24 22:00 98.8 F 111 H 18 147/83 96 Intake and Output 04/22/24 04/23/24 04/23/24 22:59 06:59 14:59 Other: Weight 97.522 kg CONSTITUTIONAL: No apparent distress, disheveled, not ill appearing or toxic appearing, no diaphoresis SKIN: [warm, dry, no jaundice, various superficial linear abrasions to the right upper extremity, various yellow-brown bruises to the RUE EYES: Pupils are equally round, extraocular movements intact without nystagmus, clear conjunctiva, non-icteric sclera HENT: Normocephalic, atraumatic, moist mucus membranes, oropharynx clear without exudates, no tongue fasciculations NECK: , Full range of motion, normal appearance PULMONARY: Clear to auscultation without wheezes, rhonchi, or rales, normal excursion, no accessory muscle use and no stridor CARDIOVASCULAR: Regular rate, rhythm, normal S1 and S2. No appreciated murmurs, rubs or gallops. Strong radial pulses with intact distal perfusion. No lower extremity edema GASTROINTESTINAL: Soft, active bowel sounds throughout, non-tender, non- distended, no palpable masses, no rebound or guarding. No hepatosplenomegaly MUSCULOSKELETAL: Extremities have no gross deformity, no edema, redness, or swelling. No calf swelling NEUROLOGIC:_a/o x 3, GCS 15, normal mentation and particularly loquacious speech. Moves all extremities x 4 without motor or sensory deficit, no tremor with outstretched hands PSYCHIATRIC: Labile mood and affect, laughing about being persistently intoxicated and about his illicit substance use though states he is ready to get sober, denies SI/HI, does not appear to be responding to internal stimuli, calm and cooperative Results CBC & Chem 7: 04/25/24 03:46 04/25/24 03:46 Labs: Abnormal Lab Results - Last 24 Hours (Table) 04/22/24 04/22/24 04/22/24 Range/Units 23:08 23:08 23:10 WBC 13.1 H (3.8-10.6) k/uL Plt Count 634 H (150-450) k/uL Neutrophils # 8.8 H (1.3-7.7) k/uL Potassium 3.4 L (3.5-5.1) mmol/L Chloride 94 L (98-107) mmol/L Carbon Dioxide 31 H (22-30) mmol/L Glucose 129 H (74-99) mg/dL POC Glucose (mg/dL) 124 H (70-110) mg/dL ALT 65 H (4-49) U/L Ur Barbiturates Screen (NotDetected) Urine Cocaine Screen (NotDetected) Serum Alcohol 258 H* mg/dL 04/23/24 Range/Units 01:06 WBC (3.8-10.6) k/uL Plt Count (150-450) k/uL Neutrophils # (1.3-7.7) k/uL Potassium (3.5-5.1) mmol/L Chloride (98-107) mmol/L Carbon Dioxide (22-30) mmol/L Glucose (74-99) mg/dL POC Glucose (mg/dL) (70-110) mg/dL ALT (4-49) U/L Ur Barbiturates Screen Detected H (NotDetected) Urine Cocaine Screen Detected H (NotDetected) Serum Alcohol mg/dL Assessment and Plan Assessment: 1. Alcohol intoxication with pending withdrawal -Patient has been placed on IV fluids in form of normal saline -CIWA protocol with Ativan in place -Continue with thiamine; Protonix 40 mg daily 2. Self-destructive behavior; psych consult in place 3. Hypokalemia; supplemented in ED; will monitor electrolytes and treat as needed 4. Mild transaminitis; likely related to daily alcohol use; will monitor liver enzymes 5. Mild leukocytosis; likely reactive; will monitor CBC 6. Substance abuse; urine drug screen is positive for cocaine and barbiturates; will consult social work DVT prophylaxis; SCDs CODE STATUS; full code
--- NOTE | 2024-04-25 16:23 | P.PN ---
Subjective Progress Note Date: 04/25/24 28-year-old male with a past medical history of alcoholism presenting today for self-harming behaviors, not caring for himself and recovery from alcoholism. Patient presents in the company of his aunt who brought him in today because she is concerned that he has been displaying self destructive behaviors. He he has been found "trashing his house and his car" earlier this week he reportedly punched a wall in his home sustaining multiple bruises to his right upper extremity. He has been drinking daily for the last 3 years. States he has been drinking more heavily over the last few months due to a recent break-up with his girlfriend. States he drinks what ever kind of alcohol and get his hands on until he cannot drink anymore. Last drink was just prior to arrival. The patient himself denies suicidal ideation or homicidal ideation. Denies auditory visual hallucinations. States that he continues to drink to prevent alcohol withdrawal because when he stops drinking he gets shaky. Also endorses illicit drug use, most recent of which was cocaine earlier today. Does not take any psychiatric medications. Patient's aunt states the patient does have access to weapons at home and has guns at home. Patient has never tried to harm himself in the past. Blood work completed in ED reveals a WBC of 13.1, hemoglobin of 15 and platelet count of 634, sodium 138, potassium 3.4, BUNs/creatinine of 13/0.73 and blood glucose of 129, AST is normal at 57, ALT is mildly elevated at 65, serum alcohol level of 258 Urine drug screen is positive for barbiturates and cocaine 04/25/2024 Patient is seen and evaluated with nursing staff at bedside; patient is awake and alert and responsive; still requiring IV Ativan Vital signs are reviewed temperature 98.5, pulse 86, respiration 18 and blood pressure of 138/89 Blood work reveals WBC normal at 10 from 13.1 upon admission, hemoglobin of 13.8 and platelet count of 368, down from 634 at time of admission; chemical profile revealed sodium 142, potassium 3.1, BUN/creatinine are within normal limits --Patient is supplemented with potassium 40 mEq p.o. x 1; we will continue to monitor electrolytes and supplement as needed -Patient remains on IV Ativan per [facility] protocol -Has been evaluated by psych for reported self-destructive behavior--patient does not meet criteria for inpatient psychiatric admission; recommending to continue with alcohol withdrawal management; Seroquel 50 mg nightly for mood stabilization/depression/sleep, Zoloft 50 mg daily for mood/anxiety; patient is not interested in any anticraving medications at this time Objective - Vital Signs Vital signs: Vital Signs Temp 97.6 F 04/25/24 07:05 Pulse 62 04/25/24 07:05 Resp 18 04/25/24 07:05 BP 137/85 04/25/24 07:05 Pulse Ox 98 04/25/24 07:05 FiO2 Intake & Output 04/24/24 04/25/24 04/25/24 18:59 06:59 18:59 Intake Total 1080 Balance 1080 Intake: Oral 1080 Other: Voiding Method Toilet Toilet # Voids 1 - Exam CONSTITUTIONAL: No apparent distress, disheveled, not ill appearing or toxic appearing, no diaphoresis SKIN: [warm, dry, no jaundice, various superficial linear abrasions to the right upper extremity, various yellow-brown bruises to the RUE EYES: Pupils are equally round, extraocular movements intact without nystagmus, clear conjunctiva, non-icteric sclera HENT: Normocephalic, atraumatic, moist mucus membranes, oropharynx clear without exudates, no tongue fasciculations NECK: , Full range of motion, normal appearance PULMONARY: Clear to auscultation without wheezes, rhonchi, or rales, normal excursion, no accessory muscle use and no stridor CARDIOVASCULAR: Regular rate, rhythm, normal S1 and S2. No appreciated murmurs, rubs or gallops. Strong radial pulses with intact distal perfusion. No lower extremity edema GASTROINTESTINAL: Soft, active bowel sounds throughout, non-tender, non- distended, no palpable masses, no rebound or guarding. No hepatosplenomegaly MUSCULOSKELETAL: Extremities have no gross deformity, no edema, redness, or swelling. No calf swelling NEUROLOGIC:_a/o x 3, GCS 15, normal mentation and particularly loquacious speech. Moves all extremities x 4 without motor or sensory deficit, no tremor with outstretched hands PSYCHIATRIC: Labile mood and affect, laughing about being persistently intoxicated and about his illicit substance use though states he is ready to get sober, denies SI/HI, does not appear to be responding to internal stimuli, calm and cooperative - Labs CBC & Chem 7: 04/25/24 03:46 04/25/24 03:46 Labs: Abnormal Lab Results - Last 24 Hours (Table) 04/24/24 04/25/24 Range/Units 11:30 03:46 Potassium 3.1 L (3.5-5.5) mmol/L Carbon Dioxide 33 H (22-30) mmol/L BUN 3 L <3.5 L (9-20) mg/dL Creatinine 0.49 L (0.66-1.25) mg/dL BUN/Creatinine Ratio <5.83 L (12.00-20.00) Ratio Glucose 133 H (74-99) mg/dL Assessment and Plan Assessment: 1. Alcohol intoxication with pending withdrawal -Patient has been placed on IV fluids in form of normal saline -CIWA protocol with Ativan in place -Continue with thiamine; Protonix 40 mg daily 2. Self-destructive behavior; psych consult in place 3. Hypokalemia; supplemented in ED; will monitor electrolytes and treat as needed 4. Mild transaminitis; likely related to daily alcohol use; will monitor liver enzymes 5. Mild leukocytosis; likely reactive; will monitor CBC 6. Substance abuse; urine drug screen is positive for cocaine and barbiturates; will consult social work DVT prophylaxis; SCDs CODE STATUS; full code
[2024-04-25 19:13] VITALS: RESP 16
[2024-04-26 08:00] VITALS: BP 117/81; PULSE 77; TEMP 97.4
[2024-04-26 09:46] LABS: BUN/Creat Ratio 8.67 Ratio (12.00-20.00); Blood Urea Nitrogen 5.2 mg/dL (9.0-27.0); Calcium 8.9 mg/dL (8.7-10.3); Carbon Dioxide 27.4 mmol/L (21.6-31.8); Chloride 102 mmol/L (96-109); Glucose 98 mg/dL (70-110); Potassium 3.1 mmol/L (3.5-5.5); Sodium 141 mmol/L (135-145)
[2024-04-26] MEDS: POTASSIUM CHLORIDE ER 20 MEQ TAB.ER PO STA (11:24)
[2024-04-26] MEDS: MAGNESIUM OXIDE 400 MG TAB PO SCH (12:47)
[2024-04-26] MEDS: POTASSIUM CHLORIDE 10 MEQ in WATER FOR INJECTION 1 100ML.BAG IVPB ONE (12:47)
--- NOTE | 2024-04-27 05:50 | P.DS ---
Providers Date of admission: 04/23/24 01:09 Attending physician: Cortez Silver Consults: 04/23/24 01:09 Consult Physician Urgent Consulting Provider: Psychiatry - [facility] Psychiatry Consult Reason/Comments: SI, self harm Do you want consulting provider notified?: Yes, Notify in am Primary care physician: Stated None Hospital Course: Date of service for this note is a 04/26/2024 Diagnoses: 1. Alcohol intoxication with withdrawal, resolved and stable 2. Depression and anxiety; psych consult in place, 3. Hypokalemia; supplemented with both oral and IV doses 4. Substance abuse; urine drug screen is positive for cocaine and barbiturates; opioids cannabis and benzodiazepine abuse as well, patient counseled to quit and he agrees Hospital course: 28-year-old male with a past medical history of alcoholism presenting today for self-harming behaviors, not caring for himself and recovery from alcoholism. Patient also presents with substance abuse including alcohol and multiple drug abuse like opioids cocaine marijuana benzodiazepines and others. Patient evaluated by psychiatrist and found to have depressive symptoms on the top of his substance abuse and nicotine dependence. Patient was started on psych medication of Seroquel and Zoloft. Patient also treated per CIWA protocol and thiamine. Patient short interval improvement. Today I saw home walking in his room freely and normally, fully awake and oriented, calm making sense and logic. Answer questions appropriately. He is aware of all of his medical problems and all the substances he uses. Patient was counseled against using the substances risk including but not limited to explained for him also other risk explained in details. He looks to understand. He looks willing to quit all the substances. He denies any depressive current symptoms no suicidal or homicidal behavior or thoughts noticed with him today. Patient denies any other physical symptoms. Patient is willing to go home today. Patient was already evaluated by psychiatrist and looks stable regarding this as well Problems and management plan were discussed with the patient and he verbalized understanding and acceptance Patient was found stable and can be discharged home in guarded prognosis however he needs follow-up as an outpatient. Patient was instructed to follow up with PCP within one week and patient agrees Physical exam Gen: patient is a AAOx3, no distress CVS: S1-S2, RRR, no murmur Lungs: B/L CTA, no wheezing Abdomen: soft, no distention, no tenderness, positive bowel sounds Extremity: no leg edema or induration Time spent more than 35 minutes Patient Condition at Discharge: Stable Plan - Discharge Summary Discharge Rx Participant: No New Discharge Prescriptions: New Magnesium Oxide [Mag-Ox] 400 mg PO TID 5 Days #15 tab QUEtiapine [SEROquel] 50 mg PO HS #30 tab Thiamine [Vitamin B-1] 100 mg PO DAILY #30 tab Ibuprofen [Motrin] 400 mg PO Q6HR PRN 2 Days #6 tab PRN Reason: Mild Pain Or Fever > 100.5 Famotidine [Pepcid] 20 mg PO DAILY #30 tab Sertraline [Zoloft] 50 mg PO DAILY #30 tab Potassium Chloride ER [K-Dur 20] 20 meq PO DAILY 3 Days #3 tab Discharge Medication List Famotidine [Pepcid] 20 mg PO DAILY #30 tab 04/26/24 [Rx] Ibuprofen [Motrin] 400 mg PO Q6HR PRN 2 Days #6 tab 04/26/24 [Rx] Magnesium Oxide [Mag-Ox] 400 mg PO TID 5 Days #15 tab 04/26/24 [Rx] Potassium Chloride ER [K-Dur 20] 20 meq PO DAILY 3 Days #3 tab 04/26/24 [Rx] QUEtiapine [SEROquel] 50 mg PO HS #30 tab 04/26/24 [Rx] Sertraline [Zoloft] 50 mg PO DAILY #30 tab 04/26/24 [Rx] Thiamine [Vitamin B-1] 100 mg PO DAILY #30 tab 04/26/24 [Rx] Follow up Appointment(s)/Referral(s): None,Stated [Primary Care Provider] - 1-2 days Ambulatory/Diagnostic Orders: Basic Metabolic Panel [LAB.AMB] Time Frame: 3 Days, Location: None Selected Magnesium [LAB.AMB] Location: None Selected Discharge/Stand Alone Forms: AA Meetings [place], [facility], Outpatient Counseling, Outpatient Therapy List Discharge Disposition: HOME SELF-CARE
== END 2024-04-26 14:48 | disposition home or self-care (01) ==
LOC: EC 21:51 → 5NMEDONC 04-23 01:09
PROVIDERS: ADMIT Hospitalist; ATTEND Hospitalist
DX: F10.230 Alcohol dependence with withdrawal, uncomplicated (principal); F10.220 Alcohol dependence with intoxication, uncomplicated; R45.88 Nonsuicidal self-harm; F14.10 Cocaine abuse, uncomplicated; F11.10 Opioid abuse, uncomplicated; F13.10 Sedative, hypnotic or anxiolytic abuse, uncomplicated; F12.10 Cannabis abuse, uncomplicated; E87.6 Hypokalemia; R74.01 Elevation of levels of liver transaminase levels; D72.829 Elevated white blood cell count, unspecified; F32.A Depression, unspecified; F41.9 Anxiety disorder, unspecified; F17.200 Nicotine dependence, unspecified, uncomplicated; Y90.8 Blood alcohol level of 240 mg/100 ml or more; Z79.899 Other long term (current) drug therapy
CPT/HCPCS: 96365; 96368; 82075; 96372; 96375; 99284; 36415; 93005; 80053; 80048 ×3; 83690; 83735 ×2; 84100; 85025 ×3; 85610; 85730; 80306; G0378 ×4; G0480; J3411; J2405; J3475; J3480; 80320